=== PATIENT | male | born 1970 ===

== ENCOUNTER 2021-04-03 12:47 | Outpatient (CLI) | payer BC, SELFPAY ==
--- NOTE | ~2021-04-03 | CT_ITS ---
EXAMINATION: CT lung screening DATE: 04/03/2021 13:18 INDICATION: Personal history of tobacco dependence, 30 pack year smoking history TECHNIQUE: Computed tomography (CT) of the chest was performed without intravenous contrast. The dose -length product (DLP) was 700.55 mGy-cm. Automated exposure control and iterative reconstruction tech [employer] were employed. COMPARISON: 07/24/2018 FINDINGS: There is a stable 9 mm nodule of the lingula on image 81. A stable 5 mm nodule is present i n the left lower lobe on image 100. There are multiple smaller nodules measuring 2 to 3 mm scattered throughout the lungs. The lungs are free of focal airspace opacities. There is no pleural effusion or pneumothorax. No pathologically enlarged thoracic lymph nodes are identified. The heart size is norm al. There is moderate thoracic spondylosis. A chronic L1 compression fracture is noted. IMPRESSION: 1. Lung-RADS category 2: Benign appearance or behavior. Continue annual screening with noncontrast lo w-dose chest CT in 12 months. Reviewed, dictated and finalized at location A. IMPRESSION: 1. Lung-RADS category 2: Benign appearance or behavior. Continue annual screeni ng with noncontrast low-dose chest CT in 12 months.
== END 2021-04-03 12:48 | disposition home or self-care (01) ==
LOC: ANHIMG 12:54
PROVIDERS: PCP Family Medicine; Visit Provider Nurse Practitioner Family
DX: Z87.891 Personal history of nicotine dependence (principal)
CPT/HCPCS: 71271

== ENCOUNTER → 2021-09-20 00:13 | Outpatient (CLI) | payer BC, SELFPAY ==
[2021-09-20 11:18] LABS: SARS-CoV-2 RNA PCR Negative
== END ==
PROVIDERS: PCP Family Medicine; Visit Provider Internal Medicine Critical Care Medicine
DX: R68.89 Other general symptoms and signs (principal); Z20.822 Contact with and (suspected) exposure to COVID-19
CPT/HCPCS: C9803; U0003; U0005

== ENCOUNTER 2021-09-22 08:23 | Outpatient (CLI) | payer BC, SELFPAY ==
--- NOTE | 2021-10-03 15:42 | WPDSLEEPSTUD ---
Sleep Study Date of Study: 09/22/21 Ordering Provider: Monica Watson MD Interpreting Physician: Cynthia Dunne DO Height: 1.88 m Weight: 180.983 kg Body Mass Index: 51.2 Neck Circumference (inches): 23 Taylor: 10 Reason for Sleep Study The patient is currently on autoBPAP with a maximum IPAP of 25 and a minimum EPAP 10. The patient's most recent download shows great compliance. Sleep History The patient is a 51-year-old male with gout tobacco abuse, and previously diagnosed PRERNA that needs to have a sleep study to re-qualify for PAP Therapy. His current autoBPAP machine is 5 years old. He is a diesel truck driver by trade. The sleep intake forms were not completed. [facility] Past Medical History Medical History Seasonal allergies Shortness of breath Tobacco abuse Social History Social History Smoking packs per day: 1 Smoking cigarettes per day: 20.0 Years smoked: 30 Smoking pack-years: 30.00 Smoking status: Current every day smoker Medications Home Medications Medication Instructions Recorded Confirmed Type aspirin 81 mg tablet,delayed 81 mg PO DAILY 03/18/20 03/27/21 History release febuxostat 40 mg tablet 40 mg PO DAILY 03/18/20 03/27/21 History ibuprofen 600 mg tablet 600 mg PO TID 03/18/20 03/27/21 History multivitamin 1 tablet PO DAILY 03/18/20 03/27/21 History rosuvastatin 5 mg tablet 5 mg PO DAILY 03/18/20 03/27/21 History indomethacin 25 mg capsule 25 mg PO Q6H PRN 03/21/20 03/27/21 History lisinopril 5 mg tablet 10 mg PO DAILY tablet 03/27/21 03/27/21 History eszopiclone 2 mg tablet 2 mg PO ONCE #1 tablet 09/04/21 Rx Sleep Procedure This test was performed using the [employer] multiple channel system including EOG, EEG, submental EMG, EKG, nasal and oral airflow using thermistors and nasal pressure sensors, chest and abdominal belts for body position data, and pulse oximetry. Video monitoring was also performed. The study was scored using CMS guidelines. Sleep Architecture Diagnostic: The patient had a total recording time of 280.6 minutes and total sleep time of 150 minutes. The sleep efficiency was 53.5%. Sleep latency was 31.9 minutes. The patient did not achieve REM sleep during this portion of the study. The patient had 54 awakenings. The patient spent 93 minutes, 62% of total sleep time in stage N1. The patient spent 57 minutes, 38% of total sleep time in stage N2. The patient spent 0 minutes in stage N3 and REM sleep. The patient spent 71 minutes, 47.3% of total sleep time in the supine position. The sleep was extremely fragmented in this portion of the study. Treatment: The patient had a total recording time of 233 minutes and total sleep time of 157.5 minutes. The sleep efficiency was 67.6%. Sleep latency was 24.8 minutes and REM latency was 50.5 minutes. The patient had 7 awakenings. The patient spent 14 minutes, 8.9% of total sleep time in stage N1. The patient spent 114.5 minutes, 72.7% of total sleep time in stage N2. The patient spent 0 minutes in stage N3. The patient spent 29 minutes, 18.4% of total sleep time in REM sleep. The patient spent 157.5 minutes, 100% of total sleep time in the supine position. Respiratory Analysis Diagnostic: The patient had an AHI of 84.8 and the central apnea index of 0. The patient had 10 obstructive apneas and 202 hypopneas. No Mateo-Fields respirations were seen. Treatment: The patient was started on CPAP 5 cm H2O and titrated to 16 cm due to hypopneas/snoring. The patient was able to achieve REM Sleep on 9 cm, 11 cm, 13 cm, 14 cm and 15 cm. The patient's sleep-disordered breathing resolved starting at 14 cm but the pressure was increased due to snoring. The patient still had loud snoring in the supine position on 16 cm. On 14 cm, the patient spent 0:05:09 in NREM and 0:15:45 in REM with 1 hypopnea, resulting in an AHI of 2
[2021-10-03 15:46] VITALS: BMI 51.2
== END 2021-09-23 07:07 | disposition home or self-care (01) ==
LOC: ANHCSM 08:25
PROVIDERS: PCP Family Medicine; Visit Provider Internal Medicine Critical Care Medicine
DX: G47.30 Sleep apnea, unspecified (principal); G47.33 Obstructive sleep apnea (adult) (pediatric)
CPT/HCPCS: 95811